=== PATIENT | female | born 1970 | race Caucasian/White ===

== ENCOUNTER 2019-03-08 20:42 | Emergency (ER) | payer OTHER ==
[~2019-03-08] VITALS: Ht 160 cm; Wt 75.7 kg
--- NOTE | 2019-03-08 20:52 | NUR ---
BIB FAMILY FOR C/O LLQ ABD PAIN , +N/V/D SINCE YESTERDAY. PMH: HYSTRECTOMY & DM. FSBS:317. PLACED ON A MONITOR
--- NOTE | 2019-03-08 21:00 | NUR ---
LISA BARRIENTOS PAC AT THE BED SIDE
[2019-03-08] MEDS ORDERED: KETOROLAC TROMETHAMINE 15 MG/ML VIAL ONE (21:14)
[2019-03-08] MEDS ORDERED: ONDANSETRON HCL/PF 4 MG/2 ML VIAL ONE (21:14)
[2019-03-08 21:21] LABS: BASOPHILS % (AUTO) 0.2 % (0.0-2.0); HEMATOCRIT 39 % (33-45); HEMOGLOBIN 13.2 g/dL (11.5-14.8); LYMPHOCYTES # (AUTO) 0.2 /CMM (0.8-4.8); LYMPHOCYTES % (AUTO) 2.5 % (20.0-44.0); MEAN CORPUSCULAR HGB CONC 34 g/dl (31.0-36.0); MEAN CORPUSCULAR VOLUME 89 fL (82-100); MONOCYTES # (AUTO) 0.8 /CMM (0.1-1.30); MONOCYTES % (AUTO) 8.5 % (2.0-12.0); NEUTROPHILS # (AUTO) 8.6 /CMM (1.8-8.9); NEUTROPHILS % (AUTO) 88.8 % (43.0-81.0); PLATELET COUNT (AUTO) 212 /CMM (150-450); RED BLOOD CELL COUNT(AUTO) 4.37 MIL/uL (4.0-5.2); WHITE BLOOD COUNT (AUTO) 9.7 K/uL (4.3-11.0)
[2019-03-08] MEDS ORDERED: IV NS 0.9% 1,000 ML BAG IV ONE (21:30)
[2019-03-08] MEDS ORDERED: KETOROLAC TROMETHAMINE INJ 30 MG/ML VIAL IV ONE (21:30)
[2019-03-08] MEDS ORDERED: ONDANSETRON HCL/PF 4 MG/2 ML VIAL IVP ONE (21:30)
[2019-03-08 21:36] LABS: BILIRUBIN,DIRECT 0.3 mg/dL (0.0-0.2); BILIRUBIN,TOTAL 1.1 mg/dL (0.2-1.0); CALCIUM, SERUM 9.4 mg/dL (8.5-10.1); CREATININE 1.4 mg/dL (0.6-1.3); POTASSIUM 3.5 mmol/L (3.5-5.1); TOTAL PROTEIN, SERUM 7.6 g/dL (6.4-8.2)
--- NOTE | 2019-03-08 21:37 | NUR ---
X.RAY TECH AT THE BED SIDE
--- NOTE | 2019-03-08 21:41 | NUR ---
Patient is resting comfortably in bed with eyes closed. Easily aroused. VSS. pt was placed on o2 at 2lpm via nc to as pt tends to breath slowly while sleeping. o2 sat increased from 89 tp 97% . will cont to monitor.
--- NOTE | 2019-03-08 21:49 | NUR ---
LISA BARRIENTOS PAC at the [facility] side
--- NOTE | 2019-03-08 22:01 | NUR ---
pt was picked up for ct
--- NOTE | 2019-03-08 22:13 | NUR ---
back from ct
[2019-03-08 23:33] LABS: APPEARANCE,URINE Clear (CLEAR); BILIRUBIN,URINE SMALL (NEGATIVE); BLOOD, URINE Negative Ery/uL (NEGATIVE); COLOR,URINE Yellow (YELLOW); KETONES,URINE 80 (NEGATIVE); LEUKOCYTE ESTERASE ,URINE Negative (NEGATIVE); NITRITE, URINE Negative (NEGATIVE); PH,URINE 5.5 (5.0-8.0); PROTEIN,URINE 30 mg/dl (NEGATIVE); UGLUCOSE 500 MG/DL mg/dL (NEGATIVE); UROBILINOGEN,URINE 0.2 EU/dL (0.2)
[2019-03-08 23:47] LABS: BACTERIA,URINE Moderate /HPF (None Seen); RBC,URINE 0-2 /HPF (0-2); SQUAMOUS EPITHELIAL CELL,UR Moderate /HPF (None Seen); WBC,URINE 0-2 /HPF (0-3)
--- NOTE | 2019-03-08 23:51 | NUR ---
LISA BARRIENTOS PAC at the bed side
--- NOTE | 2019-03-09 00:11 | NUR ---
IV removed. Catheter intact and site benign. Pressure and 4x4 applied to site. No bleeding noted. Pt is medically clear to be d/c'd home. Rx and Written and verbal after care instructions given. Patient verbalized understanding of instruction. called pt's x to waste picker the pt and provide a ride back home.
[2019-03-09] MEDS ORDERED: ONDANSETRON 4 MG TAB.RAPDIS ONE (00:33)
--- NOTE | 2019-03-09 00:36 | NUR ---
Patient discharged to home in stable condition and was picked up by her ex leonor. pt was given a zofran sl prior to d/c for nausea.
[2019-03-09 00:37] VITALS: BP 115/62
[2019-03-09] MEDS ORDERED: ONDANSETRON 4 MG TAB.RAPDIS SL ONE (01:00)
== END 2019-03-09 00:37 | disposition home or self-care (01) ==
LOC: ER 20:44
DX: R10.32 Left lower quadrant pain (principal); E11.9 Type 2 diabetes mellitus without complications; N17.9 Acute kidney failure, unspecified; R19.7 Diarrhea, unspecified; I10 Essential (primary) hypertension; M79.7 Fibromyalgia; Z90.49 Acquired absence of other specified parts of digestive tract; Z90.710 Acquired absence of both cervix and uterus; Z88.1 Allergy status to other antibiotic agents; Z88.5 Allergy status to narcotic agent; Z88.6 Allergy status to analgesic agent
CPT/HCPCS: 36415; 71045; 74176; 80048; 80076; 81001; 82962; 83690; 85025; 87086; 87804 ×2; 96361; 96374; 96375; 99284; J1885; J2405; J7030; Q0162; 81000-TC